=== PATIENT | female | born 1995 | race Two or more races ===

== ENCOUNTER 2022-05-24 14:03 | Emergency (ER) | payer MEDICAID ==
[~2022-05-24] VITALS: Ht 160 cm; Wt 100.0 kg
[2022-05-24 14:17] VITALS: BP 100/69
[2022-05-24 15:03] LABS: Urine Bacteria NONE SEEN /hpf (None Seen); Urine Blood TRACE /uL (Negative); Urine Specific Gravity 1.027 (1.001-1.035); Urine WBC 19 /hpf (0 - 5)
[2022-05-24] MEDS ORDERED: KETOROLAC TROMETH 60MG/2ML VIAL IM ONE (16:15)
[2022-05-24 16:27] LABS: Basophils # (auto) 0 10 ^3/uL (0-0.2); Basophils % (auto) 0.4 % (0.0-2.0); Eosinophils # (auto) 0.2 10 ^3/uL (0-0.8); Eosinophils % (auto) 1.5 % (0.0-7.0); Hematocrit 38.8 % (36.0-46.0); Hemoglobin 13.1 g/dL (12.2-16.2); Lymphocytes # (auto) 3.3 10 ^3/uL (0.4-5.4); Lymphocytes % (auto) 33.5 % (10.0-50.0); Mean Corpuscular Hemoglobin 28.4 pg (28.0-32.0); Mean Corpuscular Hgb Conc. 33.9 g/dL (32.0-36.0); Mean Corpuscular Volume 83.8 fL (80.0-100.0); Monocytes # (auto) 0.8 10 ^3/uL (0-1.3); Neutrophils # (auto) 5.6 10 ^3/uL (1.6-8.6); Neutrophils % (auto) 56.6 % (37.0-80.0); Nucleated Red Blood Cells % 0.1 %; Red Blood Cells 4.63 10^6/uL (4.0-5.20); Red Cell Distribution Width 14.1 % (11.8-14.3); White Blood Cell 9.9 10^3/uL (4.4-10.8)
[2022-05-24 16:45] LABS: Calcium 8.5 mg/dL (8.5-10.1); Potassium 4.1 mmol/L (3.5-5.1)
[2022-05-24 16:49] LABS: BUN/Creatinine Ratio 17.1
[2022-05-24] MEDS ORDERED: IBUP800T27 PO (17:45)
[2022-05-24] MEDS ORDERED: BACDST PO (17:45)
== END 2022-05-24 17:57 | disposition home or self-care (01) ==
LOC: ER 14:03
DX: N39.0 Urinary tract infection, site not specified (principal); N83.202 Unspecified ovarian cyst, left side; K80.20 Calculus of gallbladder without cholecystitis without obstruction
CPT/HCPCS: 36415; 74176; 80048; 81001; 81025; 85025; 96372; 99284; J1885

== ENCOUNTER 2025-02-24 20:47 | Emergency (ER) | payer MEDICAID ==
[~2025-02-24] VITALS: Ht 160 cm; Wt 80.9 kg
[~2025-02-24 20:47] MED LIST: BACDST PO; IBUP-1456 PO
--- NOTE | 2025-02-24 20:57 | ECG ---
[facility] Test Date: 2025-02-24 Test Time: 20:55:48 Pat Name: ALICIA ARREOLA Department: ER Room: Gender: F [employer] Attendant: DONNA : 1995 Requested By: ELIZABET MONZON Order Number: [id number] Reading MD: Phong Arteaga Measurements Intervals [place] Rate: 90 P: 34 AL: 121 QRS: 56 QRSD: 88 T: 30 QT: 355 QTc: 435 Interpretive Statements Sinus rhythm Multiple premature complexes, vent & supraven Electronically Signed On 02-28-2025 18:34:39 PDT by Phong Arteaga Please click the below link to view image of tracing.
[2025-02-24 21:16] LABS: Hematocrit 40.2 % (36.0-46.0); Hemoglobin 13.9 g/dL (12.2-16.2); Mean Corpuscular Hemoglobin 29.0 pg (28.0-32.0); Mean Corpuscular Volume 83.9 fL (80.0-100.0); Nucleated Red Blood Cells % 0.1 %
[2025-02-24 21:23] LABS: Chloride 105 mmol/L (98-107); Potassium 3.8 mmol/L (3.5-5.1); Sodium 142 mmol/L (136-145)
[2025-02-24 21:24] LABS: Anion Gap 8 (5-15); Calcium 9.8 mg/dL (8.7-10.4); Carbon Dioxide 29 mmol/L (20-31)
[2025-02-24 21:29] LABS: BUN/Creatinine Ratio 15.5 (10.0-20.0); Blood Urea Nitrogen 11 mg/dL (9-23); Glucose 94 mg/dL (74-106)
[2025-02-24 21:32] LABS: Urine Protein, UAD Negative (Negative)
--- NOTE | 2025-02-24 21:35 | ED.PDOC ---
HPI Comments 29-year-old female who came to ER for chest pains. Patient denies any medical problems. 20 minutes prior to arrival, she developed sudden onset midsternal chest pains, radiating to his right ribcage, 10/10 intensity, describe a sharp, pressure, constant, associated with dizziness, shortness a breath, nausea and vomiting once. Chief Complaint: Chest Pain Time Seen by MD: 21:33 Primary Care Provider: SHAUN Reviewed Notes: Nurses Notes Allergies: Coded Allergies: NO KNOWN ALLERGIES (Unverified , 05/24/22) Home Meds Active Scripts Famotidine (Pepcid AC) 20 Mg Tab, 20 MG PO BID for 5 Days, #10 TAB Prov:ELIZABET MONZON MD 02/24/25 Ibuprofen (Ibuprofen) 800 Mg Tab, 1 TAB PO TID, #30 TAB Prov:FILI BECERRA 05/24/22 Sulfamethoxazole W/Trimethopri (Bactrim Ds Tablet) 1 Tab Tb, 1 TAB PO BID for 10 Days, #20 TAB Prov:FILI BECERRA 05/24/22 Information Source: Patient Mode of Arrival: Ambulatory Severity: Moderate Timing: Minutes Duration: Since onset Location: Substernal Radiation: Other (Right ribcage) Quality: Sharp, Pressure Onset: At Rest Associated Signs and Symptoms: SOB, N/V Review of Systems REVIEW OF SYSTEMS: No fever, no chills, or fatigue HEENT: No sore throat, no earache, no congestion, no neck pain. Cardiac: (+) chest pain. No palpitations. Lungs: No shortness of breath, no cough. GI: (+) nausea, (+) vomiting, no diarrhea, no constipation, no abdominal pain : No dysuria, frequency, or urgency. No hematuria. Musculoskeletal: No joint pain , no joint swelling, no extremity edema. Skin: No rash, no itching. Neuro: No headache, (+) dizziness, no weakness Vital Signs Vital Signs Date Time Temp Pulse Resp B/P (MAP) Pulse Ox O2 Delivery O2 Flow Rate FiO2 02/25/25 01:20 71 18 99 Room Air 02/25/25 01:20 98.1 98/65 (76) 98.1 Physical Exam General: Awake, alert and oriented. No acute distress. Skin: Skin in warm, dry and intact. Appropriate color for ethnicity. Nailbeds pink with no cyanosis. HEENT: The head is normocephalic and atraumatic. Conjunctivae are clear without exudates or hemorrhage. Sclera is non-icteric. EOM are intact. No signs of nystagmus. Eyelids are normal in appearance without swelling or lesions. Oral mucosa is pink and moist Neck: The neck is supple with normal range of motion. No JVD. Cardiac: Heart rate and rhythm are normal. No murmurs, gallops, or rubs are auscultated. Respiratory: No signs of respiratory distress. Lung sounds are clear in all lobes bilaterally without rales, rhonchi, or wheezes. Abdominal: Abdomen is soft, non-tender without distention. Extremities: Upper and lower extremities are atraumatic in appearance without deformity or edema. Neurological: The patient is awake, alert and oriented to person, place, and time with normal speech. Speech is clear. There is no facial asymmetry. Psychiatric: Appropriate mood and affect. Good judgement and insight. No visual or auditory hallucinations. Past Medical History PAST MEDICAL HISTORY: Denies Surgical History: Denies all surgeries SECONDS HANDLER History: Denies all SECONDS HANDLER Hx Family History Family History: Reviewed,noncontributory to illness Social History Smoker: Non-Smoker Alcohol: Denies ETOH Use Drugs: Denies Drug Use Lives In: Home Was a procedure done? Was a procedure done?: No CP Differential Dx Differential Diagnosis: Angina, Anxiety / Panic Attack Differential Diagnosis: Angina, Chest Wall Pain, Cholelithiasis, Costochondritis, Esophageal reflux/spasm, Gastritis X-Ray, Labs, Meds, VS Vital Signs Date Time Temp Pulse Resp B/P (MAP) Pulse Ox O2 Delivery O2 Flow Rate FiO2 02/25/25 01:20 71 18 99 Room Air 02/25/25 01:20 98.1 70 18 98/65 (76) 100 98.1 02/24/25 22:56 70 02/24/25 21:48 98.6 84 18 145/75 (98) 100 98.6 02/24/25 20:55 90 Lab Test 02/24/25 23:35 02/24/25 21:43 02/24/25 20:58 02/24/25 20:53 Range/Units Troponin I High Sensitivity 3 L < 3 L 3 L </=34 ng/L Total Bilirubin 0.3 0.2-1.0 mg/dL Direct Bilirubin 0.1 <0.3 mg/dL Aspartate Amino Transferase (AST) 30 13-40 U/L Alanine Aminotransferase (ALT) 27 7-40 U/L Alkaline Phosphatase 67 46-116 U/L Total Protein 7.0 5.7-8.2 g/dL Albumin 4.2 3.2-4.8 g/dL Urine Color Light-yellow Yellow Urine Clarity Clear Clear Urine pH 7.0 5.0-9.0 Urine Specific [place] 1.023 1.001-1.035 Urine Protein Negative Negative Urine Ketones Negative Negative Urine Blood 2+ H Negative /uL Urine Nitrite Negative Negative Urine Bilirubin Negative Negative Urine Urobilinogen Normal Negative mg/dL Urine Leukocyte Esterase Negative Negative /uL Urine RBC 2 0 - 4 /hpf Urine Microscopic WBC 1 0-5 /HPF Urine Squamous Epithelial Cells Few <5 /hpf Urine Bacteria Few H None Seen /hpf Urine Glucose Normal Normal mg/dL White Blood Count 9.1 4.4-10.8 10^3/uL Red Blood Count 4.80 4.0-5.20 10^6/uL Hemoglobin 13.9 12.2-16.2 g/dL Hematocrit 40.2 36.0-46.0 % Mean Corpuscular Volume 83.9 80.0-100.0 fL Mean Corpuscular Hemoglobin 29.0 28.0-32.0 pg Mean Corpuscular Hemoglobin Concent 34.6 32.0-36.0 g/dL Red Cell Distribution Width 14.3 11.8-14.3 % Platelet Count 228 140-450 10^3/uL Mean Platelet Volume 8.1 6.9-10.8 fL Neutrophils (%) (Auto) 37.0 37.0-80.0 % Lymphocytes (%) (Auto) 55.1 H 10.0-50.0 % Monocytes (%) (Auto) 5.9 0.0-12.0 % Eosinophils (%) (Auto) 1.7 0.0-7.0 % Basophils (%) (Auto) 0.3 0.0-2.0 % Neutrophils # (Auto) 3.4 1.6-8.6 10 ^3/uL Lymphocytes # (Auto) 5.0 0.4-5.4 10 ^3/uL Monocytes # (Auto) 0.5 0-1.3 10 ^3/uL Eosinophils # (Auto) 0.2 0-0.8 10 ^3/uL Basophils # (Auto) 0 0-0.2 10 ^3/uL Nucleated Red Blood Cells 0.1 % Sodium Level 142 136-145 mmol/L Potassium Level 3.8 3.5-5.1 mmol/L Chloride Level 105 98-107 mmol/L Carbon Dioxide Level 29 20-31 mmol/L Anion Gap 8 5-15 Blood Urea Nitrogen 11 9-23 mg/dL Creatinine 0.71 0.550-1.02 mg/dL Glomerular Filtration Rate Calc 119 >90 mL/min BUN/Creatinine Ratio 15.5 10.0-20.0 Serum Glucose 94 74-106 mg/dL Calcium Level 9.8 8.7-10.4 mg/dL B-Type Natriuretic Peptide 10.64 0-100 pg/mL Lipase 63 H 12-53 U/L EXAM: XY CHEST XRAY 1 VIEW TECHNIQUE: Single frontal chest radiograph CLINICAL HISTORY: cp COMPARISON: None Findings/Impression: Frontal chest radiograph demonstrates no acute osseous or superficial soft tissue abnormalities. The trachea is midline. The cardiac silhouette and mediastinum are within normal limits. No pneumothorax, pleural effusions, or consolidations. Time of 1ST Reevaluation: 21:30 Reevaluation 1ST: Unchanged Patient Education/Counseling: Need For Follow Up Family Education/Counseling: No Family Present SEPSIS Sepsis Screen Physician Orders Electrocardigram (02/24/25 23:49) Chest Xray 1 View (02/24/25 20:59) Vital Signs Date Time Temp Pulse Resp B/P (MAP) Pulse Ox O2 Delivery O2 Flow Rate FiO2 02/25/25 01:20 71 18 99 Room Air 02/25/25 01:20 98.1 70 18 98/65 (76) 100 98.1 02/24/25 22:56 70 02/24/25 21:48 98.6 84 18 145/75 (98) 100 98.6 02/24/25 20:55 90 Laboratory Tests Test 02/24/25 20:53 White Blood Count 9.1 10^3/uL (4.4-10.8) Departure 1 Departure Time of Disposition: 23:24 Impression: Primary Impression: Chest pain Disposition: 01 HOME / SELF CARE / HOMELESS Condition: Stable Additional Instructions: ED DISCHARGE INSTRUCTIONS Instructions: Please read all instructions provided in this packet carefully. Take Pepcid for the next few days to see if it helps with the your chest pain. If your pain is improved follow up with the primary care provider for refill Although you have been discharged from the Emergency Department, this does not mean that you have a "clean bill of health". No definitive diagnosis for your symptoms has been made today. It is possible that you are in the process of developing a serious illness. This is why you must return to the ED without fail if any new or worsening symptoms (especially if your symptoms include chest pain, trouble breathing, abdominal pain, fever, headache, confusion, trouble seeing, or trouble walking) It is also very important that you see a primary care provider (PCP) within the next 1-3 days to follow up. If you are unable to get an appointment, return to the ED for re-evaluation. CHEST PAIN EDUCATION There are many things that can cause chest pain. Some are not serious and will get better on their own in a few days. But some kinds of chest pain need more testing and treatment. Your doctor may have recommended a follow-up visit in the next few days. If you are not getting better, you may need more tests or treatment. Even though your doctor has released you, you still need to watch for any problems. The doctor carefully checked you, but sometimes problems can develop later. If you have new symptoms or if your symptoms do not get better, get medical care right away. If you have worse or different chest pain or pressure that lasts more than 5 minutes or you passed out (lost consciousness), call 911 or seek other emergency help right away. A medical visit is only one step in your treatment. Even if you feel better, you still need to do what your doctor recommends, such as going to all suggested follow-up appointments and taking medicines exactly as directed. This will help you recover and help prevent future problems. How can you care for yourself at home? Rest until you feel better. Take your medicine exactly as prescribed. Call your doctor if you think you are having a problem with your medicine. Do not drive after taking a prescription pain medicine. When should you call for help? Call 911 if: You passed out (lost consciousness). You have severe difficulty breathing. You have symptoms of a heart attack. These may include: Chest pain or pressure, or a strange feeling in your chest. Sweating. Shortness of breath. Nausea or vomiting. Pain, pressure, or a strange feeling in your back, neck, jaw, or upper belly or in one or both shoulders or arms. Lightheadedness or sudden weakness. A fast or irregular heartbeat. After you call 911, the oil heater operator may tell you to chew 1 adult-strength or 2 to 4 low-dose aspirin. Wait for an ambulance. Do not try to drive yourself. Call your doctor now or seek immediate medical care if: You have any trouble breathing. You have new or different chest pain. You are dizzy or lightheaded, or you feel like you may faint. Watch closely for changes in your health, and be sure to contact your doctor if you do not get better as expected. Current as of: March 17, 2024 Author: Kandu Staff? e-Prescriptions Famotidine (Pepcid AC) 20 Mg Tab 20 MG PO BID for 5 Days, #10 TAB Prov: ELIZABET MONZON MD 02/24/25 Comments Near year old female with chest pain EKG negative for signs of ischemia. High sensitivity troponin negative. CXR shows no acute process. Presentation not suggestive of acute coronary syndrome, pulmonary embolism or aortic dissection. Patient improved at time of discharge. Patient has not been hypoxic, in respiratory distress or dyspneic during the ED observation. Patient able to ambulate without difficulty. Patient felt stable for discharge to follow up with PCP promptly. Patient advised to return to the ED with any new, worsening or concerning symptoms or inability to follow up with PCP. - I reviewed the following notes from the pt's past medical encounters: N/A The following tests were ordered, and results were reviewed by me: (See diagnostic results section) The following test were independently interpreted by me: EKG Additional information was gathered from interviewing the following independent historians: N/A I reviewed and agreed with the following test results read by other providers: CXR I discussed treatments and results with patient Decision regarding hospitalization or escalation of hospital level of care: Risks and benefits of admission for further treatment of patient's condition was considered however due to patient's stable condition patient will be discharged to follow up closely or return to care for worsening of condition or inability to follow up. Critical Care Note Critical Care Time?: No Stability Stability form required: No Heart Score Heart Score: Heart Score Response (Comments) Value History Slightly Suspicious 0 EKG Normal 0 Age <45 0 Risk Factors No known risk factors 0 Troponin Normal limit 0 Total 0 I personally scribed for ELIZABET MONZON MD ([email or web address]) on 02/24/25 at 21:35. Electronically submitted by Kevin Gates ([employer] [address]). I personally scribed for ELIZABET MONZON MD ([email or web address]) on 02/25/25 at 00:21. Electronically submitted by Kevin Gates ([employer] [address]). ELIZABET MONZON MD Feb 24, 2025 21:35
[2025-02-24] MEDS: LIDOCAINE VISCOUS 2% 15ML UD PO ONE (21:45)
[2025-02-24] MEDS: MAALOX PLUS or MAALOX 30 ML PO ONE (21:45)
[2025-02-24] MEDS ORDERED: FAMO-161 PO (23:25)
[2025-02-24 23:51] LABS: Alanine Aminotransferase 27.0 U/L (7-40); Albumin 4.2 g/dL (3.2-4.8); Alkaline Phosphatase 67.0 U/L (46-116); Bilirubin, Direct 0.1 mg/dL (<0.3); Bilirubin, Total 0.3 mg/dL (0.2-1.0); Total Protein 7.0 g/dL (5.7-8.2)
[2025-02-25 01:20] VITALS: BP 98/65; PULSE 71; RESP 18; TEMP 98.1; O2SAT 99
--- NOTE | 2025-02-25 05:43 | ECG ---
[facility] Test Date: 2025-02-24 Test Time: 22:56:45 Pat Name: ALICIA ARREOLA Department: ER Room: Gender: F [employer]: EVA : 1995 Requested By: ELIZABET MONZON Order Number: [id number] Reading MD: Phong Arteaga Measurements Intervals [place] Rate: 70 P: 41 CO: 123 QRS: 56 QRSD: 86 T: 39 QT: 392 QTc: 423 Interpretive Statements Sinus rhythm Electronically Signed On 02-28-2025 18:36:01 PDT by Phong Arteaga Please click the below link to view image of tracing.
== END 2025-02-25 01:35 | disposition home or self-care (01) ==
LOC: ER 20:47
DX: R07.89 Other chest pain (principal); R11.2 Nausea with vomiting, unspecified; R06.02 Shortness of breath
CPT/HCPCS: 36415; 71045; 80048; 80076; 81001; 83690; 83880; 84484; 85025; 93005